=== PATIENT | female | born 1955 | race Hispanic/Latino ===

== ENCOUNTER → 2025-10-31 | Outpatient (CLI) | payer OTHER ==
--- NOTE | 2025-11-01 11:10 | HMCIMG ---
STUDY: CT Lumbar Spine Without IV contrast. HISTORY: Low back pain. TECHNIQUE: Axial computed tomography images of the lumbar spine were obtained without intravenous contrast. Sagittal and coronal reformatted images were generated and reviewed. COMPARISON: None provided. FINDINGS: ALIGNMENT: There is grade I anterolisthesis of L4 on L5, attributable to facet joint degeneration with mild subluxation. Sagittal alignment is otherwise preserved without spondylolisthesis at additional levels. DISCS AND CANAL: There is multilevel degenerative disc disease most pronounced at L3L4, L4L5, and L5S1. At L3L4 the disc is moderately degenerated with loss of height and diffuse disc bulge, compatible with approximately Pfirrmann grade IIIIV morphology. At L4L5 there is advanced disc height loss and diffuse degenerative change, compatible with Pfirrmann grade IVV. At L5S1 there is asymmetric left-sided disc bulge with moderate disc degeneration, compatible with Pfirrmann grade IIIIV. At L4L5 the combination of disc bulge, anterolisthesis, and facet hypertrophy results in narrowing of the central canal corresponding to [id number] lumbar canal stenosis (approximately Schizas grade C). At L3L4 there is diffuse disc bulge and facet overgrowth resulting in central canal stenosis in the moderate range (approximately Schizas grade BC). The L5S1 central canal is mildly narrowed without high-grade stenosis. NEURAL FORAMINA: At L3L4, disc bulge and right-predominant facet arthrosis result in severe right and moderate left neural foraminal stenosis, in keeping with Diego classification severe right and moderate left foraminal stenosis with near-complete effacement of perineural fat on the right and partial effacement on the left. At L4L5, disc height loss and advanced left-predominant facet arthrosis produce severe left neural foraminal stenosis with likely exiting left L4 nerve root compression and at least moderate right foraminal narrowing, compatible with Diego high-grade left and moderate right foraminal stenosis. At L5S1, an asymmetric left disc bulge causes mild left neural foraminal stenosis with nerve root contact but without gross deformation, compatible with Diego mild foraminal stenosis on the left; the right foramen is relatively preserved. FACET JOINTS AND POSTERIOR ELEMENTS: There is [id number] facet arthrosis at L3L4, more pronounced on the right, and at L4L5, more pronounced on the left, with associated hypertrophy and osteophyte formation. Lesser degenerative facet change is present at L5S1. No pars interarticularis defect is identified. BONES: Vertebral body heights are maintained without acute compression fracture. No aggressive osseous lesion is identified. Endplate degenerative changes are present at L3L4 and L4L5. PARASPINAL SOFT TISSUES: No paraspinal soft-tissue mass or collection is identified. IMPRESSION: * Degenerative grade I anterolisthesis of L4 on L5 due to advanced facet arthrosis and disc degeneration, with associated diffuse disc bulge and facet hypertrophy at L4L5 causing [id number] central canal stenosis (approximately Schizas grade C) and severe left, at least moderate right neural foraminal stenosis (high-grade Diego foraminal stenosis) with likely left L4 nerve root impingement. * Multilevel lumbar spondylosis including L3L4 diffuse disc disease and right-predominant severe facet arthrosis resulting in moderate central canal stenosis (Schizas grade BC) and severe right, moderate left neural foraminal stenosis (Diego high-grade on the right, moderate on the left). * L5S1 asymmetric left disc bulge with mild left neural foraminal stenosis (Diego mild) and no high-grade central canal narrowing; no acute lumbar fracture or destructive osseous lesion identified. /[place]
== END | disposition home or self-care (01) ==
LOC: RAH 14:04
PROVIDERS: ATTEND Family Medicine
DX: M47.817 Spondylosis without myelopathy or radiculopathy, lumbosacral region (principal); M48.07 Spinal stenosis, lumbosacral region; M43.16 Spondylolisthesis, lumbar region; M51.360 Other intervertebral disc degeneration, lumbar region with discogenic back pain only; M51.370 Other intervertebral disc degeneration, lumbosacral region with discogenic back pain only
CPT/HCPCS: 72131